=== PATIENT | female | born 1990 | race Caucasian/White ===

== ENCOUNTER 2021-09-11 18:53 | Emergency (ER) | payer SELFPAY ==
[~2021-09-11] VITALS: Ht 152.4 cm; Wt 88.0 kg
[2021-09-11] MEDS ORDERED: IBUP-2029 MT (21:23)
[2021-09-11 21:39] VITALS: BP 116/70
== END 2021-09-11 21:39 | disposition home or self-care (01) ==
LOC: ER 18:53
DX: S93.491A Sprain of other ligament of right ankle, initial encounter (principal); S93.601A Unspecified sprain of right foot, initial encounter; F43.10 Post-traumatic stress disorder, unspecified; F32.A Depression, unspecified; J45.909 Unspecified asthma, uncomplicated; Z98.890 Other specified postprocedural states; X58.XXXA Exposure to other specified factors, initial encounter; Y93.89 Activity, other specified; Y92.89 Other specified places as the place of occurrence of the external cause; Y99.8 Other external cause status
CPT/HCPCS: 73610; 73630; 81025; 99284